=== PATIENT | male | born 1990 | race Caucasian/White ===

== ENCOUNTER 2018-03-19 15:55 | Emergency (ER) | payer BC, OTHER ==
[2018-03-19 16:03] VITALS: BP 128/76; PULSE 72; TEMP 97.6; BMI 25.8
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
[2018-03-19] MEDS ORDERED: NAPROXEN 500 MG TABLET (FP) PO ONE (16:25)
[2018-03-19] MEDS ORDERED: NAPROXEN 500 MG TABLET (FP) ONE (16:41)
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
== END 2018-03-19 17:50 | disposition home or self-care (01) ==
LOC: FER 15:55
PROC: 2W3DX1Z Immobilization of Left Lower Arm using Splint (ICD-10-PCS; principal; 2018-03-19)
PROC: 2W3CX1Z Immobilization of Right Lower Arm using Splint (ICD-10-PCS; 2018-03-19)
DX: M25.532 Pain in left wrist (principal); S62.002A Unspecified fracture of navicular [scaphoid] bone of left wrist, initial encounter for closed fracture; V18.4XXA Pedal cycle driver injured in noncollision transport accident in traffic accident, initial encounter; Y93.55 Activity, bike riding; Y92.89 Other specified places as the place of occurrence of the external cause; M25.522 Pain in left elbow
CPT/HCPCS: 73070-TC-LT-FY; 73110-TC-LR-FY; 73110-TC-RT-FY; 99283-25